=== PATIENT | female | born 1945 | race Caucasian/White ===

== ENCOUNTER 2018-02-15 12:08 | Emergency (ER) | payer OTHER ==
[~2018-02-15] VITALS: Ht 160 cm; Wt 78.0 kg
== END 2018-02-15 16:19 | disposition home or self-care (01) ==
LOC: ER 12:08
DX: I10 Essential (primary) hypertension (principal); E11.65 Type 2 diabetes mellitus with hyperglycemia

== ENCOUNTER 2018-03-17 14:54 | Emergency (ER) | payer OTHER ==
[~2018-03-17] VITALS: Ht 152.4 cm; Wt 77.6 kg
== END 2018-03-17 20:02 | disposition home or self-care (01) ==
LOC: ER 14:54
DX: B02.8 Zoster with other complications (principal)